=== PATIENT | male | born 1970 | race Caucasian/White ===

== ENCOUNTER 2022-03-11 01:10 | Emergency (ER) | payer MEDICAID ==
[~2022-03-11] VITALS: Ht 185.4 cm; Wt 76.7 kg
[2022-03-11] MEDS ORDERED: VANCOMYCIN 1 GM in IV D5W 250 ML IV ONE (02:00)
--- NOTE | 2022-03-11 02:00 | NUR ---
PATINET BIBSELF C/O LFA ABSCESS X 5 DAYS. PATINET IS A/O X 4 , RR EVEN AND UNLABORED NO SOB NOTED. PATIENT VSS, NO ACUTE DISTRESS NOTED. WILL CONTINUE TO MONITOR.
--- NOTE | 2022-03-11 02:23 | NUR ---
BLOOD WORK COLLECTED SENT TO LAB
--- NOTE | 2022-03-11 02:23 | NUR ---
COVID SWAB COLLECTED
--- NOTE | 2022-03-11 02:51 | NUR ---
AT BED SIDE FOR I&D
[2022-03-11] MEDS ORDERED: PIPERACILLIN /TAZOBACTAM 3.375 G in IV D5W 50 ML IV ONE (03:00)
[2022-03-11 03:02] LABS: BASOPHILS % (AUTO) 0.1 % (0.0-2.0); EOSINOPHILS % (AUTO) 0.3 % (0.0-6.0); HEMATOCRIT 40 % (39-51); HEMOGLOBIN 13.6 g/dL (13.5-17.5); LYMPHOCYTES # (AUTO) 1.6 K/uL (0.8-4.8); MEAN CORPUSCULAR HGB CONC 34 g/dl (31.0-36.0); MEAN CORPUSCULAR VOLUME 88 fL (80-96); MONOCYTES # (AUTO) 1.7 K/uL (0.1-1.30); MONOCYTES % (AUTO) 12.6 % (2.0-12.0); NEUTROPHILS # (AUTO) 10.2 K/uL (1.8-8.9); PLATELET COUNT (AUTO) 355 K/uL (150-450); RED BLOOD CELL COUNT(AUTO) 4.58 MIL/uL (4.5-6.0); WHITE BLOOD COUNT (AUTO) 13.6 K/uL (4.3-11.0)
[2022-03-11 03:14] VITALS: BP 124/70
[2022-03-11 03:20] LABS: CALCIUM, SERUM 9.4 mg/dL (8.5-10.1); CREATININE 0.7 mg/dL (0.6-1.3)
[2022-03-11 03:26] LABS: ALBUMIN 3.6 g/dL (3.4-5.0); BILIRUBIN,DIRECT 0.4 mg/dL (0.0-0.2); BILIRUBIN,TOTAL 1.1 mg/dL (0.2-1.0)
[2022-03-11] MEDS ORDERED: PIPERACILLIN /TAZOBACTAM 3.375 G VIAL IV ONE (03:59)
[2022-03-11] MEDS ORDERED: ACETAMINOPHEN 650 MG/20.3 ML UDC NG PRN (05:30)
--- NOTE | 2022-03-11 05:31 | NUR ---
patient does not want to wait for Rx, Risk and benefits explained x 2,
--- NOTE | 2022-03-11 05:32 | NUR ---
Patient does not wish to proceed with medical care recommended by Dr. Davenport. Patient given information related to possible complications, up to and including , which could occur as a result of leaving the hospital at this time. Patient verbalizes understanding of risks involved due to leaving against medical advice. Patient has signed AMA form.
[2022-03-11] MEDS ORDERED: SULF1TAB48 PO (05:33)
[2022-03-11] MEDS ORDERED: CEPH500C2 PO (05:33)
[2022-03-11] MEDS ORDERED: IOHEXOL-300 100 ML VIAL IV ONE (05:34)
[2022-03-11] MEDS ORDERED: IV NS 0.9% 250 ML IV ONE (05:34)
== END 2022-03-11 05:35 | disposition left against medical advice (07) ==
LOC: ER 01:14 → TRANSITION 05:02 → UNDOADMIN 05:02 → UNDODISIN 05:32 → ER 05:35
PROC: 0H9CXZZ Drainage of Left Upper Arm Skin, External Approach (ICD-10-PCS; principal; 2022-03-11)
DX: L02.414 Cutaneous abscess of left upper limb (principal); L03.114 Cellulitis of left upper limb; E87.1 Hypo-osmolality and hyponatremia; Z20.822 Contact with and (suspected) exposure to COVID-19; R73.9 Hyperglycemia, unspecified; F19.10 Other psychoactive substance abuse, uncomplicated
CPT/HCPCS: 99284; 10061; 96365; 87426; 73090; 85025; 80048; 83605; 80076; 36415; 85730; 87081; 87070; 87040 ×2; J2543; J7060; J7050; Q9967; C9803; G0378